=== PATIENT | female | born 1970 | race Caucasian/White ===

== ENCOUNTER → 2021-03-13 15:54 | Outpatient (CLI) | payer OTHER, SELFPAY ==
[2021-03-13 19:21] LABS: Amphetamine/Metha Screen,Urine Negative ng/ml (<1000)
[2021-03-13 19:22] LABS: Barbiturates Screen,Urine Negative ng/ml (<200)
[2021-03-13 19:23] LABS: Benzodiazepines Screen,Urine Negative ng/ml (<200); Cannabinoid Screen,Urine Negative ng/ml (<50)
[2021-03-13 19:24] LABS: Cocaine Screen,Urine Negative ng/ml (<300); Methadone Screen,Urine Negative ng/ml (<300)
[2021-03-13 19:25] LABS: Opiate Screen,Urine Positive ng/ml (<300)
[2021-03-13 19:26] LABS: Phencyclidine Screen,Urine Negative ng/ml (<25)
== END ==
PROVIDERS: Visit Provider Emergency Medicine
DX: Z79.899 Other long term (current) drug therapy (principal)
CPT/HCPCS: 80305

== ENCOUNTER → 2022-10-31 08:47 | Outpatient (CLI) | payer SELFPAY ==
[2022-10-31 16:33] LABS: Amphetamine/Metha Screen,Urine Negative ng/ml (<1000)
[2022-10-31 16:34] LABS: Barbiturates Screen,Urine Negative ng/ml (<200)
[2022-10-31 16:35] LABS: Benzodiazepines Screen,Urine Positive ng/ml (<200); Cannabinoid Screen,Urine Negative ng/ml (<50)
[2022-10-31 16:36] LABS: Cocaine Screen,Urine Negative ng/ml (<300)
[2022-10-31 16:37] LABS: Methadone Screen,Urine Negative ng/ml (<300); Opiate Screen,Urine Positive ng/ml (<300)
[2022-10-31 16:38] LABS: Phencyclidine Screen,Urine Negative ng/ml (<25)
== END ==
LOC: LAB.DROPOF 14:21
PROVIDERS: PCP Nurse Practitioner Family; Visit Provider Nurse Practitioner Family
DX: G89.29 Other chronic pain (principal)
CPT/HCPCS: 80305

== ENCOUNTER → 2023-01-22 12:09 | Outpatient (CLI) | payer SELFPAY ==
[2023-01-22 17:41] LABS: Amphetamine/Metha Screen,Urine Negative ng/ml (<1000)
[2023-01-22 17:42] LABS: Barbiturates Screen,Urine Negative ng/ml (<200)
[2023-01-22 17:43] LABS: Benzodiazepines Screen,Urine Positive ng/ml (<200); Cannabinoid Screen,Urine Negative ng/ml (<50)
[2023-01-22 17:44] LABS: Cocaine Screen,Urine Negative ng/ml (<300)
[2023-01-22 17:45] LABS: Methadone Screen,Urine Negative ng/ml (<300)
[2023-01-22 17:46] LABS: Opiate Screen,Urine Positive ng/ml (<300)
[2023-01-22 17:47] LABS: Phencyclidine Screen,Urine Negative ng/ml (<25)
== END ==
LOC: LAB 12:09
PROVIDERS: PCP Nurse Practitioner Family; Visit Provider Nurse Practitioner Psychiatric/Mental Health
DX: Z02.83 Encounter for blood-alcohol and blood-drug test (principal)
CPT/HCPCS: 80305

== ENCOUNTER → 2023-06-26 14:29 | Outpatient (CLI) | payer MEDICAID, SELFPAY ==
[2023-06-26 12:26] LABS: Barbiturates Screen,Urine Negative ng/ml (<200)
[2023-06-26 12:27] LABS: Amphetamine/Metha Screen,Urine Negative ng/ml (<1000)
[2023-06-26 12:29] LABS: Cocaine Screen,Urine Negative ng/ml (<300)
[2023-06-26 12:30] LABS: Benzodiazepines Screen,Urine Positive ng/ml (<200); Cannabinoid Screen,Urine Negative ng/ml (<50)
[2023-06-26 12:35] LABS: Methadone Screen,Urine Negative ng/ml (<300); Phencyclidine Screen,Urine Negative ng/ml (<25)
[2023-06-26 12:36] LABS: Opiate Screen,Urine Positive ng/ml (<300)
== END ==
LOC: LAB.DROPOF 14:30
PROVIDERS: PCP Nurse Practitioner Family; Visit Provider Nurse Practitioner Family
DX: M51.16 Intervertebral disc disorders with radiculopathy, lumbar region (principal)
CPT/HCPCS: 80305

== ENCOUNTER 2023-07-30 11:51 | Outpatient (CLI) | payer OTHER, SELFPAY ==
[2023-07-30 15:50] LABS: Amphetamine/Metha Screen,Urine Negative ng/ml (<1000)
[2023-07-30 15:51] LABS: Barbiturates Screen,Urine Negative ng/ml (<200); Benzodiazepines Screen,Urine Positive ng/ml (<200)
[2023-07-30 15:52] LABS: Cannabinoid Screen,Urine Negative ng/ml (<50)
[2023-07-30 15:53] LABS: Cocaine Screen,Urine Negative ng/ml (<300); Methadone Screen,Urine Negative ng/ml (<300)
[2023-07-30 15:54] LABS: Opiate Screen,Urine Positive ng/ml (<300)
[2023-07-30 15:57] LABS: Phencyclidine Screen,Urine Negative ng/ml (<25)
[2023-08-04 05:25] LABS: Alprazolam Negative (Cutoff=100); Benzodiazepines Positive ng/mL (Cutoff=100); Clonazepam Negative (Cutoff=100); Codeine Negative (Cutoff=100); Flurazepam Negative (Cutoff=100); Hydrocodone Positive (.); Hydrocodone Confirm 119 ng/mL (Cutoff=100); Hydromorphone Positive (.); Hydromorphone Confirm 163 ng/mL (Cutoff=100); Lorazepam Negative (Cutoff=100); Midazolam Negative (Cutoff=100); Morphine Negative (Cutoff=100); Opiates Positive (.); Temazepam Positive (.); Triazolam Negative (Cutoff=100)
== END 2023-07-30 23:59 ==
LOC: LAB.DROPOF 11:52
PROVIDERS: PCP Nurse Practitioner Family; Visit Provider Nurse Practitioner Family
DX: Z79.899 Other long term (current) drug therapy (principal); F90.9 Attention-deficit hyperactivity disorder, unspecified type; M34.1 CR(E)ST syndrome
CPT/HCPCS: 80307; 80346; 80361; G0480

== ENCOUNTER 2024-07-28 18:41 | Outpatient (CLI) | payer OTHER, SELFPAY | END 2024-07-28 23:59 | disposition home or self-care (01) | LOC: LAB.DROPOF 18:42 | PROVIDERS: PCP Nurse Practitioner Family; Visit Provider Nurse Practitioner Family | DX: R39.9 Unspecified symptoms and signs involving the genitourinary system (principal) | CPT/HCPCS: 87086 ==

== ENCOUNTER 2024-10-27 08:57 | Outpatient (CLI) | payer OTHER, SELFPAY ==
[2024-10-27 18:38] LABS: Basophils % 0.6 % (0.1-2.0); Eosinophils # 0.1 K/mm3 (0.0-0.4); Eosinophils % 2.7 % (0.1-12.0); Hematocrit 40.8 % (37.0-47.0); Hemoglobin 13.3 g/dL (12.2-16.2); Lymphocytes # 1.2 K/mm3 (0.7-4.5); Lymphocytes % 24.1 % (10-50); Mean Corpuscular HGB Conc 32.6 g/dL (31.8-35.4); Mean Corpuscular Hemoglobin 29.2 pg (27.0-31.2); Mean Corpuscular Volume 89.5 fl (81-99); Mean Platelet Volume 10.6 fl (7.4-10.4); Monocytes # 0.3 K/mm3 (0.1-1.0); Monocytes % 5.7 % (1.7-9.3); Neutrophils # 3.4 K/mm3 (1.8-7.8); Neutrophils % 66.7 % (37.0-80.0); Nucleated Red Blood Cells # 0 10^3/uL; Nucleated Red Blood Cells % 0 %; Platelet Count 257 K/mm3 (142-424); Red Blood Count 4.56 M/mm3 (4.20-5.40); Red Cell Distribution Width 13.6 % (11.5-17.5); Red Cell Distribution Width-SD 44.5 fL; White Blood Count 5.1 K/mm3 (4.8-10.8)
[2024-10-27 19:28] LABS: Alanine Aminotransferase 30 U/L (12-78); Albumin Level 4.1 g/dl (3.5-5.0); Albumin/Globulin Ratio 1.5 (1.1-1.8); Alkaline Phosphatase 98 U/L (38-126); Aspartate Amino Transferase 33 U/L (14-36); Bilirubin,Total 0.7 mg/dl (0.2-1.3); Blood Urea Nitrogen 15 mg/dl (7-17); Carbon Dioxide 30 mmol/L (22.0-30.0); Chloride 101 mmol/L (98-107); Chol/HDL Ratio 4.3 (1-3.5); Cholesterol 197 mg/dl (140-200); Estimated Glomerular Filt Rate 58 ml/min (>60); GFR (African American) 70 ML/MIN (>60); Globulin 2.8 g/dL (1.3-3.2); Glucose 108 mg/dl (74-100); HDL Cholesterol 46 mg/dl (40-60); Sodium 143 mmol/L (136-145); Total Protein,Serum 6.9 g/dl (6.3-8.2); Triglycerides 100 mg/dl (30-150); VLDL Cholesterol 20 mg/dL (0-40)
[2024-10-27 19:39] LABS: 25-OH Vitamin D, Total 37.9 ng/mL (30-100); Direct LDL Cholesterol 107.32 mg/dL (100-129)
[2024-10-27 19:55] LABS: Thyroid Stimulating Hormone 1.72 uIU/mL (0.465-4.68)
[2024-10-27 19:58] LABS: HIV Combo NEGATIVE (Negative)
[2024-10-27 20:13] LABS: Hepatitis C Ab Qual. W/ RFX NEGATIVE (Negative)
== END 2024-10-27 23:59 | disposition home or self-care (01) ==
LOC: LAB.DROPOF 10-28 11:15
PROVIDERS: PCP Nurse Practitioner Family; Visit Provider Nurse Practitioner Family
DX: Z11.59 Encounter for screening for other viral diseases (principal); I10 Essential (primary) hypertension; F90.0 Attention-deficit hyperactivity disorder, predominantly inattentive type; G89.29 Other chronic pain; Z68.21 Body mass index [BMI] 21.0-21.9, adult
CPT/HCPCS: 80053; 80061; 82306; 84443; 85025; 86803; 87389

== ENCOUNTER 2025-01-13 12:11 | Outpatient (CLI) | payer OTHER, SELFPAY ==
[2025-01-18 06:22] LABS: Neisseria gonorrhoeae, NAA Negative (Negative)
--- OUTSIDE RECORDS SUMMARY | 2025-01-18 12:39 | XMS_ITS | Encounter Summary ---
Author Organization [employer] ([place], [place], [place], [place]) Address [address] [place] [address] Care Team Providers Care White Washer Name Role Phone Unavailable Primary Care Provider Unavailabl e Encounter Details Date Type Department Care Team (Late st Contact Info) Description 07/20/2018 Transcribed Document [facility] [place] [address] ProviderRocky MD [address] [id number] Social History Tobacco Use Types Packs/Day Years Used Date Smoking Tobacco: Never Assessed Comments Unknown Sex and Gender Information Value Date Recorded Sex Assigned at Female 01/09/2022 8:27 PM CDT Legal Sex Female 8:27 PM CDT Gender Identity Female 01/09/2022 8:27 PM CDT Sexual Orientation Not on file documented as of this encounter Miscellaneous Notes * Cerner Conversion Note - Historical ProviderMD - 07/20/2018 1:00 AM LEAD FURNACE OPERATOR ED Discharge Vital Signs Entered On: 07/20/2018 1:00 EST Performed On: 07/20/2018 1:00 EST by NYA WEBB RN ED Discharge Vital Signs Peripheral Pulse Rate : 79 bpm Respiratory Rate : 18 Breaths/Min Oxygen Saturation : 96 % Oxygen Therapy Mode : Room air NYA WEBB RN - 07/20/2018 1:00 EST documented in this encounter Plan of Treatment Not on file documented as of this encounter Visit Diagnoses Not on filedocumented in this encounter
--- OUTSIDE RECORDS SUMMARY | 2025-01-18 12:39 | XMS_ITS | Referral Summary ---
Author Organization [employer] ([place], [place], [place], [place]) Address [address] [place] [address] Care Team Providers Care Marketing Programs Specialist Name Role Phone Unavailable Primary Care Provider Unavailabl e Social History Tobacco Use Types Packs/Day Years Used Date Smoking Tobacco: Never Assessed Comments Unknown Sex and Gender Information Value Date Recorded Sex Assigned at Female 01/09/2022 8:27 PM CDT Legal Sex Female 8:27 PM CDT Gender Identity Female 01/09/2022 8:27 PM CDT Sexual Orientation Not on file Plan of Treatment Not on file
--- OUTSIDE RECORDS SUMMARY | 2025-01-18 12:39 | XMS_ITS | Encounter Summary ---
Author Organization [employer] ([place], [place], [place], [place]) Address [address] [place] [address] Care Team Providers Care Flight Surgeon Name Role Phone Unavailable Primary Care Provider Unavailabl e Encounter Details Date Type Department Care Team (Late st Contact Info) Description 07/19/2018 Transcribed Document [facility] [place] [facility] [place] [address] ProviderRocky MD [address] [place] [address] Social History Tobacco Use Types Packs/Day Years Used Date Smoking Tobacco: Never Assessed Comments Unknown Sex and Gender Information Value Date Recorded Sex Assigned at Female 01/09/2022 8:27 PM CDT Legal Sex Female 8:27 PM CDT Gender Identity Female 01/09/2022 8:27 PM CDT Sexual Orientation Not on file documented as of this encounter Miscellaneous Notes * Cerner Conversion Note - Rocky ProviderMD - 07/19/2018 7:38 PM ENVIRONMENTAL STUDIES DEPARTMENT CHAIR ED Assessment Entered On: 07/19/2018 22:19 EST Performed On: 07/19/2018 22:17 EST by NYA WEBB EGGS INSPECTOR Quick Look Assessment Level of Consciousness : Alert Affect/Behavior : Calm Orientation : Oriented x 4 Skin Color : Other: pwd Skin Temperature : Warm Skin Description : Other: pwd NYA WEBB RN - 07/19/2018 22:17 EST ED General-Functional Assess Information Obtained From : Patient Communication Barrier : None Primary Language : Ukrainian Any Spiritual/Cultural Needs or Requests : No Currently in Unsafe Situation : No NYA WEBB RN - 07/19/2018 22:17 EST Social Habits Smoking Status : Never (less than 100 in lifetime; none in last 30 days) Smokeless Tobacco Status : Never Desires Tobacco Cessation Calc : 0 NYA WEBB RN - 07/19/2018 22:17 EST Social History (As Of: 07/19/2018 22:19:00 EST) Tobacco: Never (less than 100 in lifetime) Smoking Status. (Last Updated: 07/19/2018 19:51:24 EST by VIDAL CRANDALL RN) Alcohol: Alcohol Use History No. Use in Last 12 Months: No. (Last Updated: 07/19/2018 19:51:29 EST by VIDAL CRANDALL RN) Substance Abuse: Drug Use Hx: No. Use in Last 12 Months: No. (Last Updated: 07/19/2018 19:51:32 EST by VIDAL CRANDALL RN) Cardiovascular ASMT, ED Cardiovascular Symptoms : Chest discomfort at rest, Chest discomfort with activity Heart Rhythm : Regular NYA WEBB RN - 07/19/2018 22:17 EST Respiratory Respiratory Assessment WDL : WDL with exceptions Respiratory Assessment Comment : CP with SOB NYA WEBB RN - 07/19/2018 22:17 EST documented in this encounter Plan of Treatment Not on file documented as of this encounter Visit Diagnoses Not on filedocumented in this encounter
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
--- OUTSIDE RECORDS SUMMARY | 2025-01-18 12:39 | XMS_ITS | Encounter Summary ---
Author Organization [employer] ([place], [place], [place], [place]) Address [address] [place] [address] Care Team Providers Care Chief Meter Reader Name Role Phone Unavailable Primary Care Provider Unavailabl e Encounter Details Date Type Department Care Team (Late st Contact Info) Description 07/20/2018 Transcribed Document [facility] [place] [facility] [place] [address] ProviderRocky MD [address] [place] [phone] Social History Tobacco Use Types Packs/Day Years Used Date Smoking Tobacco: Never Assessed Comments Unknown Sex and Gender Information Value Date Recorded Sex Assigned at Female 01/09/2022 8:27 PM CDT Legal Sex Female 8:27 PM CDT Gender Identity Female 01/09/2022 8:27 PM CDT Sexual Orientation Not on file documented as of this encounter Miscellaneous Notes * Cerner Conversion Note - Rokcy ProviderMD - 07/20/2018 12:54 AM RETAIL FURNITURE SALES ED Discharge Entered On: 07/20/2018 0:55 EST Performed On: 07/20/2018 0:54 EST by NYA WEBB grapple skidder operator Process Patient Disposition : Discharge Personal Belongings With Patient : Yes Patient Education Completed : Yes Teaching Evaluation : Verbalizes understanding Education Comment : pcp IV Discontinued : Yes Nursing Documentation Completed : Yes NYA WEBB RN - 07/20/2018 0:54 EST ED Discharge Discharge To : Home with ambulatory/outpatient follow-up Name of Receiving Facility/Provider : pcp Mode Of Departure : Ambulatory Accompanied By : Unaccompanied Discharge Instructions Reviewed With, Opportunity For Questions Given : Patient Prescriptions Given to Patient : No Number of Prescriptions Given : 0 NYA WEBB RN - 07/20/2018 0:54 EST Electronically signed by Kody, [facility] Conversion Staff Radiation Therapist Cerner at 10/30/2022 11:42 PM CDT documented in this encounter Plan of Treatment Not on file documented as of this encounter Visit Diagnoses Not on filedocumented in this encounter
--- OUTSIDE RECORDS SUMMARY | 2025-01-18 12:39 | XMS_ITS | Encounter Summary ---
Author Organization [employer] ([place], [place], [place], [place]) Address [address] [place] [address] Care Team Providers Care Dentistry Teacher Name Role Phone Unavailable Primary Care Provider Unavailabl e Encounter Details Date Type Department Care Team (Late st Contact Info) Description 07/19/2018 Transcribed Document [facility] [place] [facility] [place] [address] ProviderRocky MD [address] [place] [address] Social History Tobacco Use Types [...] - Rocky ProviderMD - 07/19/2018 7:38 PM PUBLIC RELATIONS WRITER ED Triage Entered On: 07/19/2018 19:50 EST Performed On: 07/19/2018 19:47 EST by VIDAL CRANDALL RN ED Triage Across the Room ED Allergies : Document VIDAL CRANDALL RN - 07/19/2018 19:50 EST Triage Date/Time : 07/19/2018 19:47 EST Chief Complaint : c/o chest pain started around 1800; pain at 7/10; also states 'I can barely catch my breath ; EKG done in triage; resp even and non-labored; VIDAL CRANDALL RN - 07/19/2018 19:47 EST DCP GENERIC CODE Tracking Group : [facility] Tracking Acuity : 2 - Emergent VIADL CRANDALL RN - 07/19/2018 19:47 EST Need Lab Labels Now : No Mode of Arrival : Ambulatory Transported to ED by : Private vehicle To Room Via : Ambulate Accompanied By : Significant other ED Vital Signs : Document Height & Weight : Document ED Reason for Visit : Document VIDAL CRANDALL RN - 07/19/2018 19:47 EST Infectious Disease History Infectious Disease History : None Fever/Chills Last 48 Hours : No Travel To Regions with Travel Advisories : No Travel Outside [place] Within Last 30 Days : No Contact With Traveler to Advisory Region : No Tuberculosis Symptoms : None VIDAL CRANDALL RN - 07/19/2018 19:47 EST Vital Signs ED Temperature Source : Oral Temperature Mode : Fahrenheit Temperature, Fahrenheit : 98 Deg F ED Pain : Yes Clinical Temperature, C : 36.7 Deg C Oxygen Therapy Mode : Room air Peripheral Pulse Rate : 105 bpm (HI) Respiratory Rate : 20 Breaths/Min Blood Pressure Location : Arm, left upper Blood Pressure Source : Non-Invasive BP Device Systolic Blood Pressure : 140 mmHg Diastolic Blood Pressure : 96 mmHg (HI) Oxygen Saturation : 99 % VIDAL CRANDALL RN - 07/19/2018 19:47 EST Allergy (As Of: 07/19/2018 19:51:06 EST) Allergies (Active) penicillin Estimated Onset Date: Unspecified ; Created By: VIDAL CRANDALL RN; Reaction Status: Active ; Category: Drug ; Substance: penicillin ; Type: Allergy ; Updated By: VIDAL CRANDALL RN; Reviewed Date: 07/19/2018 19:51 EST Diagnosis Control ED (As Of: 07/19/2018 19:50:17 EST) Problems(Active) HTN (hypertension) (SNOMED CT :8004998040 ) Name of Problem: HTN (hypertension) ; Recorder: VIDAL CRANDALL RN; Confirmation: Confirmed ; Classification: Medical ; Code: [id number] ; Contributor System: Xquva ; Last Updated: 07/19/2018 19:48 EST ; Life Cycle Date: 07/19/2018 ; Life Cycle Status: Active ; Vocabulary: SNOMED CT Diagnoses(Active) Chest pain Date: 07/19/2018 ; Diagnosis Type: Reason For Visit ; Confirmation: Complaint of ; Clinical Dx: Chest pain ; Classification: Medical ; Clinical Service: Emergency medicine ; Code: PNED ; Probability: 0 ; Diagnosis Code: [id number] Shortness of breath Date: 07/19/2018 ; Diagnosis Type: Reason For Visit ; Confirmation: Complaint of ; Clinical Dx: Shortness of breath ; Classification: Medical ; Clinical Service: Emergency medicine ; Code: PNED ; Probability: 0 ; Diagnosis Code: [id number] ED Height and Weight Height Source : Measured Height Entry Format : [place] Height, Feet : 5 ft(Converted to: 152 cm, 60 Inch) Height, Inches : 9 Inch(Converted to: 0 ft 9 Inch, 22.86 cm) Clinical Height : 175.26 cm Weight Source, ED : Standing scale Weight Entry Format : [place] Weight, Pounds : 160 lb Clinical Dosing Weight : 72.73 kg Body Surface Area (BSA) : 1.88 m2 Body Mass Index : 23.7 kg/m2 [place] Body Weight (IBW) : 65.73 kg VIDAL CRANDALL RN - 07/19/2018 19:47 EST Pain Assessment Pain Assessment : Initial assessment Pain Scale Used : 0-10 Scale Location : Chest Quality : Aching VIDAL CRANDALL RN - 07/19/2018 19:47 EST Pain Scale Intensity : 7 VIDAL CRANDALL RN - 07/19/2018 19:47 EST Image 4 - Images currently included in the form version of this document have not been included in the text rendition version of the form. ED Influenza/Pneumoccocal Vaccine Influenza Immunization, Current Season : Yes Previous Vaccines from Immunization Schedule : No qualifying data available. VIDAL CRANDALL RN - 07/19/2018 19:47 EST Electronically signed by Mary Kate Gates Conversion Battery Tester And Repairer Cerner at 10/30/2022 11:30 PM CDT documented in this encounter Plan of Treatment Not on file documented as of this encounter Visit Diagnoses Not on filedocumented in this encounter
--- OUTSIDE RECORDS SUMMARY | 2025-01-18 12:40 | XMS_ITS | Clinical Summary ---
Author Organization [employer] ([place], [place], [place], [place]) Address [address] [place] [address] Care Team Providers Care Driller Multiple Spindle Name Role Phone Unavailable Primary Care Provider [...]
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
--- OUTSIDE RECORDS SUMMARY | 2025-01-18 12:40 | XMS_ITS | Encounter Summary ---
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 Continue taking your Prilosec as prescribed. Followup with GI if symptoms continue and return to ER if pain is changing or getting worse. Try to eat small bit of food every few hours to keep something on your stomach. Return to ER if worse. With: Address: When: Patient Resource Center Within As needed Comments: FOr assistance in the future with finding a new Primary Care Physician please contact the Patient Resource Center at [phone]. With: Address: When: NOT LISTED PHY Within 2 to 3 days Patient Education Materials: Food Choices for Gastroesophageal Reflux Disease, Adult When you have gastroesophageal reflux disease (GERD), the foods you eat and your eating habits are very important. Choosing the right foods can help ease the discomfort of GERD. What general guidelines do I need to follow? Choose fruits, vegetables, whole grains, low-fat dairy products, and low-fat meat, fish, and poultry. ??? Limit fats such as oils, salad dressings, butter, nuts, and avocado. ??? Keep a food diary to identify foods that cause symptoms. ??? Avoid foods that cause reflux. These may be different for different people. ??? Eat frequent small meals instead of three large meals each day. ??? Eat your meals slowly, in a relaxed setting. ??? Limit fried foods. ??? Cook foods using methods other than frying. ??? Avoid drinking alcohol. ??? Avoid drinking large amounts of liquids with your meals. ??? Avoid bending over or lying down until 2?3 hours after eating. What foods are not recommended? The following are some foods and drinks that may worsen your symptoms: VegetablesTomatoes. Tomato juice. Tomato and spaghetti sauce. [place] peppers. Onion and garlic. Horseradish. FruitsOranges, grapefruit, and lemon (fruit and juice). MeatsHigh-fat meats, fish, and poultry. This includes hot dogs, ribs, ham, sausage, salami, and bearden. DairyWhole milk and chocolate milk. Sour cream. Cream. Butter. Ice cream. Cream cheese. BeveragesCoffee and tea, with or without caffeine. Carbonated beverages or energy drinks. CondimentsHot sauce. Barbecue sauce. Sweets/DessertsChocolate and cocoa. Donuts. Peppermint and spearmint. Fats and OilsHigh-fat foods, including [place] fries and potato chips. OtherVinegar. Strong spices, such as black pepper, white pepper, red pepper, cayenne, chacon powder, cloves, leni, and chili powder. The items listed above may not be a complete list of foods and beverages to avoid. Contact your dietitian for more information. This information is not intended to replace advice given to you by your health care provider. Make sure you discuss any questions you have with your health care provider. Document Released: 07/01/2006 Document Revised: 12/06/2016 Document Reviewed: 05/05/[address] Interactive Patient Education ? [address] [employer] [address] [employer] Nonspecific Chest Pain Chest pain can be caused by many different conditions. There is always a chance that your pain could be related to something serious, such as a heart attack or a blood clot in your lungs. Chest pain can also be caused by conditions that are not life-threatening. If you have chest pain, it is very important to follow up with your health care provider. What are the causes? Causes of this condition include: ??? Heartburn. ??? Pneumonia or bronchitis. ??? Anxiety or stress. ??? Inflammation around your heart (pericarditis) or lung (pleuritis orpleurisy). ??? A blood clot in your lung. ??? A collapsed lung (pneumothorax). This can develop suddenly on its own (spontaneous pneumothorax) or from trauma to the chest. ??? Shingles infection (varicella-zoster virus). ??? Heart attack. ??? Damage to the bones, muscles, and cartilage that make up your chest wall. This can include: ? Bruised bones due to injury. ? Strained muscles or cartilage due to frequent or repeated coughing or overwork. ? Fracture to one or more ribs. ? Sore cartilage due to inflammation (costochondritis). What increases the risk? Risk factors for this condition may include: ??? Activities that increase your risk for trauma or injury to your chest. ??? Respiratory infections or conditions that cause frequent coughing. ??? Medical conditions or overeating that can cause heartburn. ??? Heart disease or family history of heart disease. ??? Conditions or health behaviors that increase your risk of developing a blood clot. ??? Having had chicken pox (varicella zoster). What are the signs or symptoms? Chest pain can feel like: ??? Burning or tingling on the surface of your chest or deep in your chest. ??? Crushing, pressure, aching, or squeezing pain. ??? Dull or sharp pain that is worse when you move, cough, or take a deep breath. ??? Pain that is also felt in your back, neck, shoulder, or arm, or pain that spreads to any of these areas. Your chest pain may come and go, or it may stay constant. How is this diagnosed? Lab tests or other studies may be needed to find the cause of your pain. Your health care provider may have you take a test called an ECG (electrocardiogram). An ECG records your heartbeat patterns at the time the test is performed. You may also have other tests, such as: ??? Transthoracic echocardiogram (TTE). In this test, sound waves are used to create a picture of the heart structures and to look at how blood flows through your heart. ??? Transesophageal echocardiogram (JENY).?This is a more advanced imaging test that takes images from inside your body. It allows your health care provider to see your heart in finer detail. ??? Cardiac monitoring. This allows your health care provider to monitor your heart rate and rhythm in real time. ??? Holter monitor. This is a portable device that records your heartbeat and can help to diagnose abnormal heartbeats. It allows your health care provider to track your heart activity for several days, if needed. ??? Stress tests. These can be done through exercise or by taking medicine that makes your heart beat more quickly. ??? Blood tests. ??? Other imaging tests. How is this treated? Treatment depends on what is causing your chest pain. Treatment may include: ??? Medicines. These may include: ? Acid blockers for heartburn. ? Anti-inflammatory medicine. ? Pain medicine for inflammatory conditions. ? Antibiotic medicine, if an infection is present. ? Medicines to dissolve blood clots. ? Medicines to treat coronary artery disease (CAD). ??? Supportive care for conditions that do not require medicines. This may include: ? Resting. ? Applying heat or cold packs to injured areas. ? Limiting activities until pain decreases. Follow these instructions at home: Medicines ??? If you were prescribed an antibiotic, take it as told by your health care provider. Do not stop taking the antibiotic even if you start to feel better. ??? Take tibq-vsh-ebztnlb and prescription medicines only as told by your health care provider. Lifestyle ??? Do notuse any products that contain nicotine or tobacco, such as cigarettes and e-cigarettes. If you need help quitting, ask your health care provider. ??? Do notdrink alcohol. ??? Make lifestyle changes as directed by your health care provider. These may include: ? Getting regular exercise. Ask your health care provider to suggest some activities that are safe for you. ? Eating a heart-healthy diet. A registered dietitian can help you to learn healthy eating options. ? Maintaining a healthy weight. ? Managing diabetes, if necessary. ? Reducing stress, such as with yoga or relaxation techniques. General instructions ??? Avoid any activities that bring on chest pain. ??? If heartburn is the cause for your chest pain, raise (elevate) the head of your bed about 6 inches (15 cm) by putting blocks under the legs. Sleeping with more pillows does not effectively relieve heartburn because it only changes the position of your head. ??? Keep all follow-up visits as told by your health care provider. This is important. This includes any further testing if your chest pain does not go away. Contact a health care provider if: ??? Your chest pain does not go away. ??? You have a rash with blisters on your chest. ??? You have a fever. ??? You have chills. Get help right away if: ??? Your chest pain is worse. ??? You have a cough that gets worse, or you cough up blood. ??? You have severe pain in your abdomen. ??? You have severe weakness. ??? You faint. ??? You have sudden, unexplained chest discomfort. ??? You have sudden, unexplained discomfort in your arms, back, neck, or jaw. ??? You have shortness of breath at any time. ??? You suddenly start to sweat, or your skin gets clammy. ??? You feel nauseous or you vomit. ??? You suddenly feel light-headed or dizzy. ??? Your heart begins to beat quickly, or it feels like it is skipping beats. These symptoms may represent a serious problem that is an emergency. Do not wait to see if the symptoms will go away. Get medical help right away. Call your local emergency services (911 in the [place] Do not drive yourself to the hospital. This information is not intended to replace advice given to you by your health care provider. Make sure you discuss any questions you have with your health care provider. Document Released: 04/10/2006 Document Revised: 03/25/2017 Document Reviewed: 03/25/[address] Interactive Patient Education ? 2016 [employer]. Allergies: penicillin Medication Information: Home Meds Display acetaminophen-hydrocodone (Lortab) 7.5 mg, Oral, BID, 0 Refill(s) amphetamine-dextroamphetamine (Adderall 20 mg oral tablet) 1 Tab, Oral, Tab, BID, 0 Refill(s) furosemide (Lasix 20 mg oral tablet) 1 Tab, Oral, Daily, 0 Refill(s) lamoTRIgine (LaMICtal 150 mg oral tablet) 1 Tab, Oral, BID, 0 Refill(s) losartan (Cozaar 50 mg oral tablet) 1 Tab, Oral, Daily, 0 Refill(s) omeprazole (PriLOSEC 20 mg oral delayed release capsule) 1 Cap, Oral, Daily, 0 Refill(s) QUEtiapine (SEROquel 100 mg oral tablet) 1 Tab, Oral, BID, 0 Refill(s) Laboratory or Other Results This Visit (last charted value for your 07/19/2018 visit) Hematology 07/19/18 19:55:00 WBC: 4.1 K/uL -- Normal range between ( 3.9 and 10.0 ) RBC: 4.40 Million/uL -- Normal range between ( 3.93 and 5.22 ) Hct: 38.3 % -- Normal range between ( 34.1 and 44.9 ) Hgb: 12.9 Gram/dL -- Normal range between ( 11.2 and 15.7 ) Platelet Count: 263 K/uL -- Normal range between ( 163 and 369 ) MCH: 29.3 pg -- Normal range between ( 25.6 and 32.2 ) MCHC: 33.7 Gram/dL -- Normal range between ( 32.3 and 36.5 ) MCV: 87.0 fL -- Normal range between ( 79.0 and 94.8 ) Slide Review: No Eos %: 1.2 % -- Normal range between ( 1.0 and 7.0 ) [place] #: 0.35 K/uL -- Normal range between ( 0.24 and 0.82 ) Eos #: 0.05 K/uL -- Normal range between ( 0.04 and 0.54 ) [place] %: 8.5 % -- Normal range between ( 4.7 and 12.5 ) Baso %: 0.2 % -- Normal range between ( 0.0 and 1.0 ) Baso #: 0.01 K/uL -- Normal range between ( 0.01 and 0.08 ) RDW: 12.5 % -- Normal range between ( 11.6 and 14.4 ) Neut %: 63.8 % -- Normal range between ( 34.0 and 71.0 ) Neut #: 2.64 K/uL -- Normal range between ( 1.56 and 6.13 ) Lymph %: 26.1 % -- Normal range between ( 19.3 and 53.0 ) Lymph #: 1.08 K/uL -- Normal range between ( 1.18 and 3.74 ) MPV: 9.3 fL -- Normal range between ( 9.4 and 12.4 ) IG#: 0 x10(3)/uL IG%: 0 % -- Normal range between ( 0 and 1 ) General Chemistry 07/19/18 19:55:00 Creatinine Level: 0.94 mg/dL -- Normal range between ( 0.55 and 1.02 ) Sodium Level: 143 mmol/L -- Normal range between ( 136 and 146 ) Potassium Level: 3.2 mmol/L -- Normal range between ( 3.5 and 5.1 ) Chloride Level: 106 mmol/L -- Normal range between ( 102 and 112 ) Carbon Dioxide Level: 31 mmol/L -- Normal range between ( 21 and 32 ) Anion Gap: 9 -- Normal range between ( 9 and 20 ) Bilirubin Total: 0.3 mg/dL -- Normal range between ( 0.2 and 1.3 ) A/G Ratio: 1.4 -- Normal range between ( 1.1 and 2.5 ) ALT: 40 Units/Liter -- Normal range between ( 12 and 78 ) AST: 27 Units/Liter -- Normal range between ( 5 and 37 ) Globulin: 2.8 Gram/dL -- Normal range between ( 1.5 and 4.5 ) Alk Phos: 93 Units/Liter -- Normal range between ( 27 and 136 ) Bun/Creatinine: 18.1 -- Normal range between ( 8.0 and 20.0 ) Calcium Level: 8.3 mg/dL -- Normal range between ( 8.5 and 10.1 ) eGFR : >60 mL/min/1.73m2 eGFR NonAfrican: >60 mL/min/1.73m2 Glucose Level: 96 mg/dL -- Normal range between ( 74 and 106 ) Magnesium Level: 2.2 mg/dL -- Normal range between ( 1.5 and 2.4 ) Blood Urea Nitrogen: 17 mg/dL -- Normal range between ( 7 and 22 ) Protein Total: 6.7 Gram/dL -- Normal range between ( 6.4 and 8.2 ) Albumin Level: 3.9 Gram/dL -- Normal range between ( 3.4 and 5.0 ) Cardiac Specific Markers 07/19/18 23:35:00 Troponin I Ultra: <0.015 ng/mL -- Normal range between ( 0.015 and 0.045 ) Diagnostic Radiology 07/19/18 23:46:03 CR Chest 1 Vw Portable: CR Chest 1 Vw Portable Medication Comment: Procedures: Laboratory Orders Name Status AutoDiff Completed CBCD Completed CMP Completed MG Completed TROPIULT Completed TROPIULT Completed Radiology Orders Name Status CR Chest 1 Vw Portable Completed Cardiology Orders Name Status ECG Ordered This statement is to verify that STACIA RAMOS was seen at [facility] on ,07/20/2018 01:01:06. This is not a work excuse, if a work excuse was needed it will be in addition to this statement as a separate form. IMPORTANT: The examination and treatment you have received in the Emergency Department has been done to provide an appropriate evaluation and stabilizing treatment on an emergency basis only. Given the limited resources, it is not meant to be a substitute for complete medical care. The follow-up doctor you named will receive a copy of your records and all test reports. IT IS IMPORTANT THAT YOU SCHEDULE A FOLLOW-UP APPOINTMENT AND ARE RE-EVALUATED. You should report any new complaints, symptoms, or remaining problems at that time. IT IS IMPOSSIBLE FOR THE EMERGENCY DEPARTMENT TO RECOGNIZE AND TREAT ALL ELEMENTS OF INJURY OR ILLNESS IN A SINGLE VISIT. If you have been referred to a specialist physician, it means that we believe you may have a condition that requires the expertise of a specialist. KEEP IN MIND THAT THE SPECIALIST HAS HIS/HER OWN OFFICE POLICIES WHICH MAY REQUIRE PROPER INSURANCE OR PAYMENT UP FRONT BEFORE THE SPECIALIST WILL SEE YOU. It is your responsibility to call the specialist physician to make an appointment. We do not have the ability to identify specialists/physicians that work with specific insurance companies. Please be advised that all financial charges or billing practices are determined by that practice, not the hospital. If your insurance company requires that you see a specialist from their approved list, it is your responsibility to contact your insurance company to make those arrangements. It is also your responsibility to follow any other requirements of your insurance company necessary to obtain coverage for claims submitted. If you had special tests, such as EKG???s or X-rays, the interpretation of your tests given to you by the Emergency Dept. Physician is a preliminary report. Some fractures and illnesses fail to show up on preliminary tests. We will review them again within 24-48 hours. We will call you if there are any new suggestions. If your symptoms continue notify your physician. After you leave, you should follow the instructions below. In all events, you may obtain a copy of your Emergency Department visit from Medical Records. Please call to be directed to this department. We will bill your insurance; however, you are responsible today for any co-pay amounts. You will receive a separate bill for any services you may have received including: emergency, radiology, or pathology physicians. Please be sure we have an accurate contact phone number and address, should we need to call you for any reason. CIGARETTE SMOKING: The facts are clear; cigarette smoking will shorten your life. Smoking can cause many illnesses along the way. As a healthcare provider, SJAkash recommends that you stop smoking. Assistance with quitting is available by contacting 7-021-YXIK-NOW. This is a free resource providing counseling, support, and referral. Or you may contact your personal physician. As part of your treatment plan, your physician may have prescribed a limited course of a controlled substance. This medication may be given to help people with moderate or severe pain or for other medical conditions, but there are risks involved with treatment. Common side effects may include nausea, constipation, drowsiness, sweating, itching, dry mouth, and rash. More serious side effects may include cognitive and motor impairment, like problems with thinking, concentrating, alertness, and movement (e.g. slowed reflexes), and driving and operating heavy machinery can be dangerous. It is important for you to talk to your physician if you have these side effects or questions. These controlled substances can produce physical dependence and be habit-forming if taken for an extended period of time, which means that the body has gotten used to them and may experience withdrawal symptoms if they are abruptly stopped. Withdrawal symptoms can include runny nose, sweating, goose bumps, diarrhea, abdominal cramping, rapid heartbeat, difficulty sleeping, and nervousness. The home medications listed are only as accurate as the information you provided. Please continue taking all of your medications prescribed by your Primary Care Provider unless specifically told to change or discontinue the medication. Please direct any questions regarding your home medications to your Primary Care Provider. YOU ARE THE MOST IMPORTANT FACTOR IN YOUR RECOVERY. ?? Follow your instructions carefully ?? Take your medicines as prescribed ?? Most important, see a provider as discussed. If you do not have a provider, we can provide a list of clinics Confidential This message and accompanying documents are covered by Electronic Communications Privacy Act 18 U.S.C. ???Sections 3866-9480,?? and contain information intended for the specified individual(s) only. This information is confidential. If you are not the intended recipient or an agent responsible for delivering it to the intended recipient, you are hereby notified that you have received the document in error and that any review, dissemination, copying, or the taking of any action based on the contents of this information is strictly prohibited. If you have received this communication in error, please notify us immediately by email, and delete the original message. STROKE is an EMERGENCY [employer] ACT F.A.S.T! FACE ?? Facial droop ?? Uneven smile ARM ?? Arm numbness ?? Arm weakness SPEECH ?? Slurred speech ?? Difficulty speaking or understanding TIME ?? Call 911 and get to the hospital immediately Have the ambulance go to the nearest stroke center. STROKE Risk Factors High blood pressure High cholesterol Heart Disease Diabetes Smoking Heavy alcohol use Physical inactivity and obesity Atrial Fibrillation (irregular heartbeat) Family history of stroke Acknowledgment I hereby acknowledge receipt of these instructions and information above. I understand that I have received Emergency Treatment only which is not a substitute for complete medical care and acknowledge that all of my medical problems may not be known, identified, or treated prior to my release. I UNDERSTAND THE NEED TO ARRANGE FOLLOW-UP CARE WITH THE PHYSICIAN INDICATED. I UNDERSTAND THAT I SHOULD CONTACT MY PHYSICIAN IMMEDIATELY OR RETURN TO THE EMERGENCY DEPARTMENT IF MY CONDITION WORSENS, FAILS TO IMPROVE, OR NEW SYMPTOMS APPEAR. Vital Signs B/P PULSE RESP. RATE TEMPERATURE PULSE OX Signature of Emergency Provider Date / Time Signature of Emergency Nurse Date / Time Reminder: Be sure to sign up for the [facility] patient portal, which gives you 04/02 access to your medical information ??? including these discharge instructions ??? using your computer, smartphone, or tablet. Just go to deviantART to get started. Questions? Call . Acknowledgment I hereby acknowledge receipt of these instructions and information above. I understand that I have received Emergency Treatment only which is not a substitute for complete medical care and acknowledge that all of my medical problems may not be known, identified, or treated prior to my release. I UNDERSTAND THE NEED TO ARRANGE FOLLOW-UP CARE WITH THE PHYSICIAN INDICATED. I UNDERSTAND THAT I SHOULD CONTACT MY PHYSICIAN IMMEDIATELY OR RETURN TO THE EMERGENCY DEPARTMENT IF MY CONDITION WORSENS, FAILS TO IMPROVE, OR NEW SYMPTOMS APPEAR. Signature of Patient / Responsible Person Date / Time Please provide a telephone number where you can be reached. The best time to call is between: It is permissible to leave a message if no answer: Yes____ No____ Nurse Providing Instructions: Emergency Physician: documented in this encounter Plan of Treatment Not on file documented as of this encounter Visit Diagnoses Not on filedocumented in this encounter
--- OUTSIDE RECORDS SUMMARY | 2025-01-18 12:40 | XMS_ITS | Encounter Summary ---
Author Organization [employer] ([place], [place], [place], [place]) Address [address] [place] [address] Care Team Providers Care Lidder Name Role Phone Unavailable Primary Care Provider Unavailabl e Encounter Details Date Type Department Care Team (Late st Contact Info) Description 07/20/2018 Transcribed Document [facility] [place] [facility] [place] [address] ProviderRocky MD [address] [place] [address] Social History Tobacco Use Types [...] Conversion Note - Historical ProviderMD - 07/20/2018 12:27 AM COLOR GRINDER Patient: STACIA RAMOS Age: 48 years Sex: Female : 1970 Associated Diagnoses: Atypical chest pain; Epigastric pain Author: JACIEL HERCULES MD-EMR Basic Information Additional information: Chief Complaint from Nursing Triage Note : Chief Complaint 07/19/2018 19:47 EST Chief Complaint c/o chest pain started around 1800; pain at 7/10; also states 'I can barely catch my breath ; EKG done in triage; resp even and non-labored; . History of Present Illness 48 yo male with c/o burning chest pain starting on way home today. Pt reports possible h/o panic attack, also has recent n/v. Describes as constant, nonradiating, worse wtih deep breath. no particular relieving factors. Pt has h/o GERD, says pain feels similar in nature with the burning. Pt felt like heart was racing, very anxious, and like I couldn't catch my breath. No recent URI symptoms, denies other complaints at this time. The patient presents with chest pain. The onset was just prior to arrival. The course/duration of symptoms is constant and fluctuating in intensity. Location: Central epigastric. Radiating pain: none. The character of symptoms is pleuritic and burning. The degree at onset was minimal. The degree at maximum was severe. The degree at present is moderate. The exacerbating factor is breathing. The relieving factor is none. Review of Systems Constitutional symptoms: Negative except as documented in HPI. Skin symptoms: Negative except as documented in HPI. Eye symptoms: Negative except as documented in HPI. ENMT symptoms: Negative except as documented in HPI. Respiratory symptoms: Negative except as documented in HPI. Cardiovascular symptoms: Negative except as documented in HPI. Gastrointestinal symptoms: Negative except as documented in HPI. Genitourinary symptoms: Negative except as documented in HPI. Musculoskeletal symptoms: Negative except as documented in HPI. Neurologic symptoms: Negative except as documented in HPI. Psychiatric symptoms: Negative except as documented in HPI. Endocrine symptoms: Negative except as documented in HPI. Health Status Allergies: Allergic Reactions (Selected) Severity Not Documented Penicillin- No reactions were documented.. Medications: (Selected) Documented Medications Documented Adderall 20 mg oral tablet: 1 Tab, Oral, BID, 0 Refill(s) Cozaar 50 mg oral tablet: 1 Tab, Oral, Daily, 0 Refill(s) LaMICtal 150 mg oral tablet: 1 Tab, Oral, BID, 0 Refill(s) Lasix 20 mg oral tablet: 1 Tab, Oral, Daily, 0 Refill(s) Lortab: 7.5 mg, Oral, BID, 0 Refill(s) PriLOSEC 20 mg oral delayed release capsule: 1 Cap, Oral, Daily, 0 Refill(s) SEROquel 100 mg oral tablet: 1 Tab, Oral, BID, 0 Refill(s). Past Medical/ Family/ Social History Medical history Reviewed as documented in chart. Surgical history: No active procedure history items have been selected or recorded., Reviewed as documented in chart. Family history: No family history items have been selected or recorded.. Social history: Social & Psychosocial Habits Alcohol 07/19/2018 Alcohol Use History, Social Habits No Alcohol Use in Last Twelve Months No Substance Abuse 07/19/2018 Recreational Drug Use History No Recreational Drug Use Last 12 Months No Tobacco 07/19/2018 Smoking Status Never (less than 100 in l , Reviewed as documented in chart. Problem list: Active Problems (1) HTN (hypertension) . Physical Examination Vital Signs Vital Signs/Vital Measures 07/19/2018 19:47 EST Temperature Source Oral Temperature Mode Fahrenheit Temperature, Fahrenheit 98 Deg F Clinical Temperature, C 36.7 Deg C Peripheral Pulse Rate 105 bpm HI Respiratory Rate 20 Breaths/Min Blood Pressure Location Arm, left upper Blood Pressure Source Non-Invasive BP Device Systolic Blood Pressure 140 mmHg Diastolic Blood Pressure 96 mmHg HI Oxygen Saturation 99 % Oxygen Therapy Mode Room air . Measurements 07/19/2018 19:47 EST Height Source Measured Height Entry Format [place] Height/Length, [place] (ft) 5 ft Height/Length [place] 9 Inch CLINICALHEIGHT 175.26 cm [place] Body Weight 65.73 kg Weight Source, ED Standing scale Weight Entry Format [place] Weight [place] lb 160 lb CLINICALWEIGHT 72.73 kg Body Surface Area (BSA) 1.88 m2 Body Mass Index 23.7 kg/m2 . Oxygen Saturation 07/19/2018 19:47 EST Oxygen Saturation 99 % . General: Alert, no acute distress, anxious. Skin: Warm, dry, pink. Eye: Pupils are equal, round and reactive to light, extraocular movements are intact, normal conjunctiva, Anicteric. Ears, nose, mouth and throat: Oral mucosa moist, no pharyngeal erythema or exudate, no oral lesions. Cardiovascular: Regular rate and rhythm, Normal peripheral perfusion. Respiratory: Lungs are clear to auscultation, respirations are non-labored, breath sounds are equal. Gastrointestinal: Soft, Non distended, Tender to palpation in the epigastrium. Musculoskeletal: Normal ROM, no swelling. Neurological: Alert and oriented to person, place, time, and situation. Medical Decision Making Documents reviewed: Emergency department nurses' notes. Electrocardiogram: Time 07/19/2018 19:45:00, rate 107, EP Interp, sinus tachycardia. nonspecific ST changes. Electrocardiogram: Time 07/19/2018 23:39:00, rate 78, normal sinus rhythm, No ST changes, EP Interp, nonspecific ST chagnes. Results review: Lab results : Lab Results 07/19/2018 23:35 EST Troponin I Ultra <0.015 ng/mL 07/19/2018 19:55 EST Sodium Level 143 mmol/L Potassium Level 3.2 mmol/L LOW Chloride Level 106 mmol/L Carbon Dioxide Level 31 mmol/L Anion Gap 9 Glucose Level 96 mg/dL Blood Urea Nitrogen 17 mg/dL Creatinine Level 0.94 mg/dL eGFR >60 mL/min/1.73m2 eGFR NonAfrican >60 mL/min/1.73m2 Bun/Creatinine 18.1 Calcium Level 8.3 mg/dL LOW Protein Total 6.7 Gram/dL Albumin Level 3.9 Gram/dL Globulin 2.8 Gram/dL A/G Ratio 1.4 Bilirubin Total 0.3 mg/dL Alk Phos 93 Units/Liter AST 27 Units/Liter ALT 40 Units/Liter Magnesium Level 2.2 mg/dL Troponin I Ultra <0.015 ng/mL WBC 4.1 K/uL RBC 4.40 Million/uL Hgb 12.9 Gram/dL Hct 38.3 % MCV 87.0 fL MCH 29.3 pg MCHC 33.7 Gram/dL Platelet Count 263 K/uL MPV 9.3 fL LOW RDW 12.5 % Neut % 63.8 % Neut # 2.64 K/uL Lymph % 26.1 % Lymph # 1.08 K/uL LOW Weber % 8.5 % Weber # 0.35 K/uL Eos % 1.2 % Eos # 0.05 K/uL Baso % 0.2 % Baso # 0.01 K/uL Slide Review No IG# 0 x10(3)/uL IG% 0 % . Radiology results: Emergency physician interpretation: CXR--oblong, calcified lesion to left perihilar region near aortic arch. not mentioned on formal result. discussed with the patient and to f/u for repeat imaging. pt has scleroderma, may be related to this? possibly calcified lymph node., Radiology Results (Last 48 hours) [id number] -- 07/19/2018 19:38 CR Chest 1 Vw Portable (07/19/2018 23:46) Result: Single view chestINDICATION: Chest painFINDINGS:The lungs are clear. The mediastinum and cardiac silhouette areunremarkable.IMPRESSION: No acute abnormality . Procedure Heart Score Heart History: Slightly suspicious: Yes 0. EKG: Non-specific repolarization disturbance. Age: 45 - 65: Yes +1. Risk Factors: 1 - 2 risk factors: Yes +1. Troponin: Less than or equal to normal limit: Yes 0. Scorin to 3: 1.6% risk of MACE. Impression and Plan Diagnosis Atypical chest pain - Discharge, Emergency medicine, Medical Epigastric pain - Discharge, Emergency medicine, Medical Plan Condition: Improved, Stable. Disposition: Discharged Admit/Transfer/Discharge: Discharge (Order): Start: 07/20/2018 0:34 EST, Discharge to: Home. Patient was given the following educational materials: Nonspecific Chest Pain, Food Choices for Gastroesophageal Reflux Disease, Adult. Follow up with: Patient Resource Center Within As needed FOr assistance in the future with finding a new Primary Care Physician please contact the Patient Resource Center at [phone].; NOT LISTED PHY Within 2 to 3 days; Return to Emergency Department Within As needed Return if condition worsens. Continue taking your Prilosec as prescribed. Followup with GI if symptoms continue and return to ER if pain is changing or getting worse. Try to eat small bit of food every few hours to keep something on your stomach. Return to ER if worse. . Counseled: Patient, Regarding diagnosis, Regarding diagnostic results, Regarding treatment plan, Regarding prescription, Patient indicated understanding of instructions. 48 yo female with onset of burning chest/epigastric pain starting on way home shortly prior to arrival. Pt has negative troponin and ekgs. Feeling better, she thinks is GERD and seems suggestive of this. Had not eaten today and says similar in the past with not eating. pt dc home. documented in this encounter Plan of Treatment Not on file documented as of this encounter Visit Diagnoses Not on filedocumented in this encounter
--- OUTSIDE RECORDS SUMMARY | 2025-01-18 12:40 | XMS_ITS | Encounter Summary ---
Author Organization [employer] ([place], [place], [place], [place]) Address [address] [place] [address] Care Team Providers Care General Labor Forklift Operator Name Role Phone Unavailable Primary Care Provider Unavailabl e Encounter Details Date Type Department Care Team (Late st Contact Info) Description 07/21/2018 Transcribed Document [facility] [place] [facility] [place] [address] ProviderRocky MD [address] [place], [place] [id number] Social History Tobacco Use Types Packs/Day Years [...] Conversion Note - Historical ProviderMD - 07/21/2018 2:17 AM LOCKER ROOM CLERK documented in this encounter Plan of Treatment Not on file documented as of this encounter Visit Diagnoses Not on filedocumented in this encounter
--- OUTSIDE RECORDS SUMMARY | 2025-01-18 12:40 | XMS_ITS | Encounter Summary ---
Author Organization [employer] ([place], [place], [place], [place]) Address [address] [place] [address] Care Team Providers Care Precision Lens Grinder Name Role Phone Unavailable Primary Care Provider Unavailabl e Encounter Details Date Type Department Care Team (Late st Contact Info) Description 07/21/2018 Transcribed Document [facility] [place] [facility] [place] [address] ProviderRocky MD [address] [place] [address] Social History Tobacco Use Types [...] Conversion Note - Historical ProviderMD - 07/21/2018 3:10 AM LABORER ELECTROPLATING ED Discharge Entered On: 07/21/2018 3:10 EST Performed On: 07/21/2018 3:10 EST by Melvin Caro Rn-Resource Discharge Process Patient Disposition : Discharge Personal Belongings With Patient : Yes Patient Education Completed : Yes Teaching Evaluation : Needs further teaching IV Discontinued : No Nursing Documentation Completed : Yes Melvin Caro Rn-Resource - 07/21/2018 3:10 EST ED Discharge Discharge To : Home with ambulatory/outpatient follow-up Mode Of Departure : Ambulatory Accompanied By : Unaccompanied Discharge Instructions Reviewed With, Opportunity For Questions Given : Patient Prescriptions Given to Patient : No Melvin Caro Rn-Resource - 07/21/2018 3:10 EST Electronically signed by [facility] Conversion Underwriting Internship Cerner at 10/30/2022 11:45 PM CDT documented in this encounter Plan of Treatment Not on file documented as of this encounter Visit Diagnoses Not on filedocumented in this encounter
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
--- OUTSIDE RECORDS SUMMARY | 2025-01-18 12:40 | XMS_ITS | Encounter Summary ---
Author Organization [employer] ([place], [place], [place], [place]) Address [address] [place] [address] Care Team Providers Care Interior Surface Insulation Worker Name Role Phone Unavailable Primary Care Provider Unavailabl e Encounter Details Date Type Department Care Team (Late st Contact Info) Description 07/20/2018 Transcribed Document [facility] Family Medicine [facility] [place] [address] ProviderRocky MD [address] [place] [address] Social History Tobacco Use Types Packs/Day [...] Conversion Note - Historical ProviderMD - 07/20/2018 1:01 AM DATASTAGE CONSULTANT [place] [address] [facility] [place] [address] PERSON INFORMATION Name STACIA SNYDER Age 48 Years 1970 Sex Female Language Yi PCP PHY, NOT LISTED Marital Status Med Service Emergency Medicine Acct# Arrival 07/19/2018 19:38:00 Visit Reason Shortness of breath; Chest pain; CHEST PAIN Acuity 2 - Emergent LOS 000 05:23 Depart Date: 07/20/18 01:01 AM Address: [address] [facility] [address] Comment: PROVIDER INFORMATION Provider Role Assigned Unassigned NYA WEBB, TRAINING PROGRAM MANAGER Nurse 07/19/2018 22:14:41 JACIEL HERCULES MD-EMR ED Physician 07/19/2018 22:19:27 DIAGNOSIS Atypical chest pain; Epigastric pain PHYS DOC NOTES VITALS INFORMATION Vital Sign Triage Latest Temp Source Oral Oral Temp Mode Fahrenheit Fahrenheit Temp Fahrenheit 98 Deg F 98 Deg F Temp Celsius 02 Sat 99 % 96 % Respiratory Rate 20 Breaths/Min 18 Breaths/Min Peripheral Pulse Rate 105 bpm 79 bpm Apical Heart Rate Blood Pressure 140 mmHg / 96 mmHg 140 mmHg / 96 mmHg Comment: MEDICAL INFORMATION Allergy Info: penicillin Medications: Home Meds Display acetaminophen-hydrocodone (Lortab) 7.5 mg, [...] tablet) 1 Tab, Oral, BID, 0 Refill(s) Comment: DISCHARGE INFORMATION Discharge Disposition: Home Discharge Location: PATIENT EDUCATION INFORMATION Instructions: Food Choices for Gastroesophageal Reflux Disease, Adult; Nonspecific Chest Pain Follow up: With: Address: When: Return to Emergency Department [...] please contact the Patient Resource Center at [phone]. With: Address: When: NOT LISTED PHY Within 2 to 3 days Comment: documented in this encounter Plan of Treatment Not on file documented as of this encounter Visit Diagnoses Not on filedocumented in this encounter
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
--- OUTSIDE RECORDS SUMMARY | 2025-01-18 12:40 | XMS_ITS | Encounter Summary ---
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
--- OUTSIDE RECORDS SUMMARY | 2025-01-18 12:40 | XMS_ITS | Clinical Summary ---
Author Organization Healthcare Address [address] [place] [address] Care Team Providers Care Pot Washer Name Role Phone None, None Primary Care Provider Unavailabl e Allergies Active Allergy Reactions Criticality Noted Date Comments Penicillins Hives,Rash,Unknown - Patient states they do not know rxn details Medium 01/24/2007 Family History Medical History Relation Name Comments Diabetes Other 1 Hypertension Other 2 Conversions - Other Other 3 Myeloid dysplasia Relation Name Status Comments Other 1 Other 2 Other 3 Social History Tobacco Use Types Packs/Day Years Used Date Smoking Tobacco: Never Smokeless Tobacco: Never Alcohol Use Standard Drinks/Week Comments No 0 (1 standard drink = 0.6 oz pur e alcohol) Comments Unknown Sex and Gender Information Value Date Recorded Sex Assigned at Not on file Legal Sex Female 8:02 PM EDT Gender Identity Not on file Sexual Orientation Not on file Last Filed Vital Signs Vital Sign Reading Time Taken Comments Blood Pressure 158/100 02/06/2021 11:50 PM EDT Pulse 73 02/06/2021 11:50 PM EDT Temperature 36.8 C (98.2 F) 02/06/2021 11:50 PM EDT Respiratory Rate 18 02/06/2021 11:50 PM EDT Oxygen Saturation 96% 02/06/2021 11:50 PM EDT Inhaled Oxygen Concentration - - Weight 74.8 kg (165 lb) 02/06/2021 8:15 PM EDT Height 172.7 cm (5' 8 ) 02/06/2021 8:15 PM EDT Body Mass Index 25.09 02/06/2021 8:15 PM EDT Plan of Treatment Health Maintenance Due Date Last Done Comments [facility]-Depression Screening 1970 [facility]-Infant/Child/Adol SDOH Screenings 1970 [facility]- SDOH Screenings 1988 [facility]-Adult SDOH Screenings 1988 [facility]-Pap Smear 1991 [facility]-Cervical Cancer Screening 2000 [facility]-HPV/Cotest 2000 [facility]-Hepatitis B Vaccines (2 of 3 - Hep B Twinrix 3-dose series) 05/06/2012 04/08/2012 CT Colonography 2015 Colonoscopy 2015 FIT-DNA 2015 FIT 2015 FOBT 2015 Sigmoidoscopy 2015 [facility]-Colorectal Cancer Screening 2015 [facility]-Pneumococcal Vaccine: 50+ Years (1 of 1 - PCV) 2020 [facility]-Zoster Vaccines (1 of 2) 2020 NIX-TOSWE-49 Vaccine ( - season) 2024 05/04/2022, 03/17/2021, 08/19/2020, Additional history exists [facility]-Influenza Vaccine (#1) 2025 [facility]-DTaP,Tdap,and Td Vaccines (2 - Td or Tdap) 07/21/2028 07/21/2018 [facility]-Hepatitis A Vaccines Aged Out 04/08/2012 No longer eligible based on patient's age to complete this topic HPV Vaccines Aged Out No longer eligi ble based on patient's age to complete this topic [facility]-HIB Vaccines Aged Out No longer e ligible based on patient's age to complete this topic [facility]-IPV Vaccines Aged Out No longer e ligible based on patient's age to complete this topic [facility]-Rotavirus Vaccines Aged Out No lo nger eligible based on patient's age to complete this topic Insurance [facility] Care Teams Pot Washer Relationship Specialty Start Date End Date None, [place] [address] PCP - General 02/06/21
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
== END 2025-01-13 23:59 | disposition home or self-care (01) ==
LOC: LAB.DROPOF 01-18 12:12
PROVIDERS: PCP Nurse Practitioner Family; Visit Provider Obstetrics & Gynecology
DX: Z20.2 Contact with and (suspected) exposure to infections with a predominantly sexual mode of transmission (principal)
CPT/HCPCS: 87491; 87591